=== PATIENT | female | born 1985 | race Asian ===

== ENCOUNTER → 2020-11-02 | Outpatient (CLI) | payer OTHER ==
[2020-11-02 11:22] LABS: HEMATOCRIT 43.8 % (37.0-47.0); MEAN CELL VOLUME 96.1 fl (81.0-99.0); MEAN CORPUSCULAR HGB 31.4 pg (27.0-31.0); MEAN CORPUSCULAR HGB CONC 32.6 g/dl (33.0-37.0); MEAN PLATELET VOLUME 9.5 fl (9.6-12.3); RED BLOOD COUNT 4.56 10*6/uL (4.10-5.10); RED CELL DISTRI WIDTH 11.6 % (0-14.5); WHITE BLOOD COUNT 8.2 10*3/uL (4.8-10.8)
[2020-11-02 12:00] LABS: ALBUMIN 4.4 gm/dl (3.1-4.5); BUN 9 mg/dl (7-24); CHLORIDE 102 mmol/L (98-107); POTASSIUM 3.8 mmol/L (3.5-5.1); SODIUM 135 mmol/L (136-145); TOTAL PROTEIN 8.8 gm/dL (6.4-8.2)
[2020-11-02 12:07] LABS: ALKALINE PHOSPHATASE 69 U/L (45-117); CHOLESTEROL 224 mg/dL (<200); CREATININE 0.53 mg/dL (0.55-1.02); FREE T4 1.48 ng/dl (0.76-1.46); HDL CHOLESTEROL 104 mg/dl (40-60); LDL CHOLESTEROL 108 mg/dL (9-159); SGOT/AST 9 IU/L (3-35); SGPT/ALT 16 U/L (12-78); THYROID STIM HORMONE (HS) 0.811 uIU/ml (0.358-4.75); TRIGLYCERIDES 61 mg/dl (<150); VLDL CHOLESTEROL 12 mg/dL (6-40)
[2020-11-02 13:10] LABS: VITAMIN D, 25-HYDROXY 17.1 ng/mL (30-100)
== END | disposition home or self-care (01) ==
LOC: LAB 11:01
PROVIDERS: ATTEND Family Medicine
DX: Z13.220 Encounter for screening for lipoid disorders (principal); R53.83 Other fatigue; E55.9 Vitamin D deficiency, unspecified; R00.2 Palpitations

== ENCOUNTER → 2020-11-05 | Outpatient (CLI) | payer OTHER ==
[2020-11-05 17:32] LABS: BILIRUBIN, DIRECT 0.2 mg/dL (0.0-0.2); FREE T4 1.13 ng/dl (0.76-1.46)
[2020-11-05 17:40] LABS: THYROID STIM HORMONE (HS) 0.857 uIU/ml (0.358-4.75)
[2020-11-06 08:08] LABS: THYROID PEROXIDASE (TPO) AB <9 IU/mL (0-34); TOTAL PROTEIN, SERUM 8.3 g/dL (6.0-8.5)
[2020-11-06 14:08] LABS: ANTI-SMOOTH MUSCLE ANTIBODY 9 Units (0-19)
[2020-11-06 15:07] LABS: THYROGLOBULIN ANTIBODY <1.0 IU/mL (0.0-0.9)
[2020-11-06 17:06] LABS: A/G RATIO 1.2 (0.7-1.7); ALBUMIN 4.6 g/dL (2.9-4.4); ALPHA-1-GLOBULIN 0.2 g/dL (0.0-0.4); ALPHA-2-GLOBULIN 0.7 g/dL (0.4-1.0); GAMMA GLOBULIN 1.8 g/dL (0.4-1.8); GLOBULIN, TOTAL 3.7 g/dL (2.2-3.9); M-SPIKE Not Observed g/dL (Not Observed); PE INTERPRETATION Comment: (.)
[2020-11-09 13:06] LABS: ALBUMIN, URINE 19.8 % (.); ALPHA-1-GLOBULIN, URINE 3.5 % (.); ALPHA-2-GLOBULIN, URINE 23.6 % (.); BETA GLOBULIN, URINE 25.6 % (.); GAMMA GLOBULIN, URINE 27.5 % (.); M-SPIKE, % Not Observed % (Not Observed); PROTEIN,TOTAL - URINE RANDOM <4.0 mg/dL (Not Estab.)
== END | disposition home or self-care (01) ==
LOC: LAB 16:21
PROVIDERS: ATTEND Family Medicine
DX: E87.0 Hyperosmolality and hypernatremia (principal); E80.6 Other disorders of bilirubin metabolism